=== PATIENT | female | born 1985 | race Caucasian/White ===

== ENCOUNTER 2016-08-03 18:19 | Inpatient (IN) | payer OTHER ==
[2016-08-03] MEDS ORDERED: PENICILLIN G POTASSIUM 5 MMU in NS 0.9% (MINI-BAG PLUS) 100 ML IV ONE (18:44)
[2016-08-03] MEDS ORDERED: LACTATED RINGERS 1,000 ML IV SCH (18:45)
[2016-08-03] MEDS ORDERED: OXYTOCIN 10 UNITS/ML VIAL ONE (19:02)
[2016-08-03] MEDS ORDERED: IV START KIT ONE (19:02)
[2016-08-03] MEDS ORDERED: LIDOCAINE Viscous 2% 15 ML UDCUP ONE (19:03)
[2016-08-03] MEDS ORDERED: LIDOCAINE 1% (PRES FREE) 30 ML VIAL ONE (19:03)
[2016-08-03] MEDS ORDERED: OXYTOCIN IN LR 500 ML IV ONE (19:03)
[2016-08-03] MEDS ORDERED: MINERAL OIL 25 ML BOT ONE (19:03)
[2016-08-03] MEDS ORDERED: PUMP TUBING ONE (19:03)
[2016-08-03] MEDS ORDERED: NS 0.9% (MINI-BAG PLUS) 100 ML IV ONE (19:05)
[2016-08-03] MEDS ORDERED: PENICILLIN G POTASSIUM 5 MMU VIAL ONE (19:05)
[2016-08-03 19:48] VITALS: BMI 29.0
[2016-08-03] MEDS ORDERED: PENICILLIN G 3 MIL UNIT PREMIX 50 ML IV ONE (23:48)
[2016-08-03] MEDS: PENICILLIN G 3 MIL UNIT PREMIX 3 MMU in Premix (D5W) 50 ml 1 EACH IV SCH (23:57)
--- NOTE | 2016-08-03 23:59 | PDOC36 ---
Provider Note Subject: Labor Progress Note Note: S: Resting in bed. Reports occasional, irregular contraction. Coping well. Starting second dose of PCN prophylaxis and ready for AROM augmentation. O: EFM: 120/moderate variability/accels present/decels absent [place]: q 5-7 mins, mild to mod to palpation SVE: 4/70/-1/asynclitic VS: BP 122/57, HR 57, T 36.1 A: IOL for prodromal labor Hx of rapid active labor; GBS pos; received adequate prophylaxis FHR Cat 1 Asynclitism Plan: AROM for clear fluid. Expectant management. Reassess in 2 hours or PRN. Anticipate .
--- NOTE | 2016-08-04 | PCMAN ---
OB Admission Note - History : 2 Term: 1 : 0 Abortions (S&E): 0 Livin EDC:: 08/08/16 Gestational Age (weeks): 39 Days (#/7): 2 Admit Cervical Dilation:: 4 Admit Cervical Effacement (%):: 50 Admit Station:: -2 Membrane Status: Intact Labor Onset (Date): 08/03/16 Contractions: Yes Contraction Frequency:: 2-4 Heart Rate:: 120 (moderate variability/accels present/decels absent) Status:: FHR Cat 1 EFW:: 7.5# Summary of Course:: Onset of care at 10w2d x 13 visits. ALOK based on 6w5d U/S. complicated by tobacco use. Presents to [facility] for elective IOL at 39w2d due to prodromal labor. Has been blayne since 07/20 with minimal cervical change. Hx of rapid labors after SROM; IOL will permit adequate GBS prophylaxis. - Labs Blood Type: B (+) positive Hct/Hgb:: 13.3 Rubella Status: Immune GBS Status: Positive Other Labs:: Urine culture positive on 06/26 for ecoli with negative test of cure on 07/27 - Review of Systems Neg ROS - Physical Exam General: Afebrile, No Acute Distress Psych/Mental Status: Mood/Affect Appropriate, Judgment/Insight Intact Neurological: Grossly Intact, Alert, Oriented x 4 Lungs: Clear to Auscultation Bilaterally Cardiovascular: Regular Rate and Rhythm Genitourinary: Normal Female Genitalia, No Edema Extremities: Full ROM, No Edema Skin: Normal Color, Warm - Problems (1) Elective induction of labor planned Status: Acute Code: [id number] Assessment/Plan: Assessment: 30 year old at 39w2d Elective IOL due to prodromal labor Suspected malposition GBS positive; hx of rapid labor after AROM FHR Cat 1 Plan: Start GBS prophylaxis AROM 3 hours after first dose Exercises to facilitate rotation Anticipate
[2016-08-04 01:36] LABS: HEMATOCRIT 43.5 % (37.0-47.0); HEMOGLOBIN 14.7 gm/l (12.0-16.0); MEAN CELL VOLUME 96.9 fl (81.0-99.0); MEAN CORPUSCULAR HEMOGLOBIN 32.7 pg (27.0-31.0); MEAN CORPUSCULAR HGB CONC 33.8 g/dl (33.0-37.0); RED CELL DISTRIBUTION WIDTH 13.8 % (11.5-14.5)
[2016-08-04] MEDS ORDERED: LIDOCAINE Viscous 2% 15 ML UDCUP TP ONE (03:05)
[2016-08-04] MEDS ORDERED: OXYTOCIN IN LR 500 ML IV ONE (03:05)
[2016-08-04] MEDS ORDERED: LANOLIN 50 APPLIC/7G TUBE TP PRN (03:22)
[2016-08-04] MEDS ORDERED: CALCIUM CARBONATE 500 MG TAB.CHEW PO PRN (03:22)
[2016-08-04] MEDS ORDERED: BENZOCAINE/MENTHOL 60 APPLIC/BOT TP PRN (03:22)
--- NOTE | 2016-08-04 03:43 | PCMDEL ---
Delivery Note - Labor 1st stage (hr/min):: 3.5 hours 2nd stage (hr/min):: 1 hour 3rd stage (hr/min):: 16 mins Total (hr/min):: 3 hours 46 mins Pushed (hr/min):: 1 hour - Delivery Delivery (Date): 08/04/16 Delivery (Time): 02:54 Infant Gender: Male Presentation: Cephalic Position: OA Umbilical Cord: 3 Vessel Delayed Cord Clamping:: Not Performed 1 Minute Total: 9 5 Minute Total: 9 Placenta:: Cage/Intact EBL:: 400 Perineum:: Bilabial sulcal tears; not repaired Anesthesia/Meds:: none Length ROM:: 3.5 hours Comments:: Admitted to [facility] for IOL at 39w2d due to prodromal labor, GBS positive status and hx of rapid active phase. Received adequate GBS prophylaxis prior to AROM of clear fluid. Progressed quickly into active labor. Remained candidate for IA throughout first stage. Labored on birthing ball and in the shower. Supported by partner. Spontaneous urge to push. Pushed in various positions with minimal initial progress due to maternal exhaustion and pain intolerance. Had difficulty coping with pushing and pushed ineffectively throughout most of second stage. Pushed effectively in stranded beetle position for slow of head. FHR Cat 2 in 2nd stage for bradycardia to the 90s and then 60s with . Slow delivery of head in OA to ROT position. No delivery of anterior shoulder with maternal pushing efforts and moderate downward traction. Attempt made to deliver posterior arm but arm was extended. Placed in Santhosh position and wood screw manuever was performed to rotate body clockwise 180 degrees for delivery of posterior arm and shortly afterwards anterior shoulder. Support called to room but had good tone and FHT above 100 BPM. Head to body delivery time 90 seconds. Placed immediately on maternal abdomen. Spontaneous cries and respirations. Clavicles inspected and noted to be intact. DCC x 5 mins. AMTSL with IV pitocin. Spontaneous separation and delivery of intact placenta in Cage presentation with gentle cord traction and maternal pushing efforts. Fundus firm after delivery with massage. Perineum inspected and patient noted to have two shallow bilabial lacerations left unrepaired. Maternal and status stable after delivery.
[2016-08-04] MEDS: HYDROCODONE/ACETAMINOPHEN 5/325MG TABLET PO PRN ×3 (03:53→11:59)
[2016-08-04] MEDS: IBUPROFEN 800 MG TABLET PO SCH ×3 (03:53→18:06)
[2016-08-04] MEDS ORDERED: FLU VACC 2016-17 (36MO-64Y)/PF 60 MCG/0.5 ML SYRINGE IM V ONE (03:57)
[2016-08-04] MEDS ORDERED: PNEUMOCOCCAL 23-VAL P-SAC VAC 0.5 ML VIAL IM V ONE (03:57)
[2016-08-04] MEDS: PENICILLIN G 3 MIL UNIT PREMIX 3 MMU in Premix (D5W) 50 ml 1 EACH IV SCH (03:59)
[2016-08-04] MEDS: DOCUSATE SODIUM 100 MG CAPSULE PO PRN (11:58)
[2016-08-05] MEDS: IBUPROFEN 800 MG TABLET PO SCH ×3 (00:02→12:27)
[2016-08-05 06:03] LABS: HEMATOCRIT 35.3 % (37.0-47.0); HEMOGLOBIN 11.7 gm/l (12.0-16.0)
[2016-08-05 08:31] VITALS: BP 105/55
[2016-08-05] MEDS: HYDROCODONE/ACETAMINOPHEN 5/325MG TABLET PO PRN ×2 (08:49→14:28)
[2016-08-05] MEDS: DOCUSATE SODIUM 100 MG CAPSULE PO PRN (08:49)
--- NOTE | 2016-08-10 10:01 | PDOC39B ---
Hospital Course: ADMIT DATE: 08/03/16 DISCHARGE DATE: 08/05/16 ADMISSION DIAGNOSES: Elective IOL PROCEDURES: Elective IOL, HISTORY OF PRESENT ILLNESS: 30 year old G2 T1 L1 at 39 weeks 3 days presenting for elective IOL. Achieved and had an uneventful course. HOSPITAL COURSE: By day of discharge the patient is ambulating, eating, voiding , and passing flatus without difficulty. Pain is controlled and lochia is appropriate. She is exclusively. She desires an Rx for a breastpump. She plans to use the Mirena IUD for contraception. She reports good support from family and friends. She is requesting an Rx of [place] for pain relief. - Physical Exam Vital Signs: Temp Pulse Resp BP Pulse Ox 98.1 F 66 14 105/55 08/05/16 08:10 08/05/16 08:10 08/05/16 08:10 08/05/16 08:10 General: Afebrile Psych/Mental Status: Mood/Affect Appropriate, Judgment/Insight Intact, Bonding Well Lungs: Clear to Auscultation Bilaterally Cardiovascular: Regular Rate and Rhythm Breast: Soft, Skin intact, Nipples Intact Fundus: Firm, Midline, Below Umbilicus Genitourinary: Normal Female Genitalia Lochia: Light Extremities: Full ROM Skin: Normal Color - Discharge Diagnosis (1) care and examination Status: Acute Assessment/Plan: A: 30yo Day 1 Lochia stable exclusively P: Pain: short rx of [place] given, encouraged to wean and transition to ibuprofen : [facility] appt PRN, lanolin PRN, [id number], on-demand feeding Education: handout given and discussed. Reviewed warning signs (baby blues vs PP mood disorder, bleeding, infection, DVT/PE) PP contraception: Mirena IUD. Reviewed no unprotected intercourse until after insertion at 6-wk visit. Follow-up: 08/17/16 at 3:40pm in [place], or PRN. - Discharge Plan Condition: Stable Disposition: Home Instruction Forms: Vaginal Discharge Instructions Additional Instructions: Congratulations! You have a 2-week visit on 08/17/16 at 3:40pm in [place]. If you have any questions or need to reschedule, please call the midwives at [phone]. Prescriptions: Docusate Sodium [COLACE 100 MG CAPSULE (SHF)] 100 mg PO DAILY PRN #14 cap PRN Reason: Constipation Hydrocodone Bit/Acetaminophen [[place] 5/325] 1 tab PO Q4-6H PRN #14 tablet PRN Reason: Pain
== END 2016-08-05 13:59 | disposition home or self-care (01) | DRG 775 ==
LOC: FBC 18:19 → EDSTATUS 08-08 17:41
PROVIDERS: ADMIT Licensed Practical Nurse; ATTEND Licensed Practical Nurse
PROC: 3E033VJ Introduction of Other Hormone into Peripheral Vein, Percutaneous Approach (ICD-10-PCS; 2016-08-03)
PROC: 10E0XZZ Delivery of Products of Conception, External Approach (ICD-10-PCS; principal; 2016-08-04)
DX: O99.334 Smoking (tobacco) complicating childbirth (principal); F17.210 Nicotine dependence, cigarettes, uncomplicated; O99.824 Streptococcus B carrier state complicating childbirth; O70.0 First degree perineal laceration during delivery; O76 Abnormality in fetal heart rate and rhythm complicating labor and delivery; Z37.0 Single live birth; Z3A.39 39 weeks gestation of pregnancy